=== PATIENT | male | born 1985 | race American Indian/Alaskan Native ===

== ENCOUNTER 2019-07-21 09:42 | Emergency (ER) | payer SELFPAY ==
[~2019-07-21 09:42] MED LIST: AMIODARONE 150 MG/3 ML INJ IV ONE; EPINEPHrine 1:10,000 1 MG/10 ML SYRINGE ONE; NALOXONE 2 MG/2 ML INJ ONE
--- NOTE | 2019-07-21 10:45 | Emergency Department Report ---
ED CPR HPI - General Chief Complaint: Cardiac Arrest/CPR Stated Complaint: CARDIAC ARREST Time Seen by Provider: 07/21/19 10:40 Source: EMS Mode of arrival: Stretcher Limitations: No Limitations - History of Present Illness Initial Comments: This is a 33-year-old man with presumed overdose and cardiac arrest in the field. Medics tell me that they encountered the man with pinpoint pupils. They administered 2 mg of Narcan. They assisted the man's ventilation with an Ambu bag. They established an IV. They gave him 2 additional milligrams of Narcan. He did not respond to Narcan. He suffered a cardiac arrest. At the time of arrival, he had no return of spontaneous circulation for 20 minutes. Medics state that they defibrillated him several times. They gave usual ACLS medications. The patient arrived in the emergency department without signs of life. MD Complaint: stopped breathing (Witnessed by machine feed operator) Place: other (Unknown) Number of Shocks Delivered: 2 (At least 2) Initial Findings in the Field: lethargic ROSC in the Field: No Associated Injuries: No Treatments Prior to Arrival: BMV, defribrillated shocks #, epinephrine mgs # - Related Data Previous Rx's Medication Instructions Recorded Last Taken Type Erythromycin [Erythromycin Ophth 10 applic OP Q4H #1 tube 03/19/13 Unknown Rx Oint] Allergies Allergy/AdvReac Type Severity Reaction Status Date / Time No Known Allergies Allergy Unverified 03/19/13 10:15 ED Review of Systems ROS: Stated complaint: CARDIAC ARREST Other details as noted in HPI Comment: Unobtainable due to pts medical conditions ED Past Medical Hx - Past Medical History Previous Medical History?: Yes Additional medical history: Herion use - Surgical History Additional Surgical History: unknown - Social History Smoking Status: Never Smoker Substance Use Type: Other (Presumed opiate) - Medications Home Medications: Home Medications Medication Instructions Recorded Confirmed Last Taken Type Erythromycin [Erythromycin Ophth 10 applic OP Q4H #1 tube 03/19/13 Unknown Rx Oint] ED Physical Exam - General Limitations: Altered Mental Status General appearance: other (GCS is 3) - Head Head exam: Present: atraumatic - Eye Eye exam: Present: other (Small pupils nonreactive) - ENT ENT exam: Present: normal exam - Neck Neck exam: Present: normal inspection - Respiratory Respiratory exam: Present: normal lung sounds bilaterally (With assist) - Cardiovascular Cardiovascular Exam: Present: other (PEA) - GI/Abdominal GI/Abdominal exam: Present: soft. Absent: distended - Extremities Exam Extremities exam: Present: normal inspection - Back Exam Back exam: Present: other (Not examined) - Neurological Exam Neurological exam: Present: other ED Course - Reevaluation(s) Reevaluation #1: Patient received standard ACLS protocol. He was defibrillated times several. He had no return of spontaneous circulation. He was intubated. Ultimately he was pronounced when further resuscitative efforts were futile. 07/21/19 10:45 - Intubation Time Out Performed: No Laryngoscope: Carmen Size: 4 ET Tube Size: 7.5 Tube Secured Depth (cm): 22 Tube Secured Location: teeth Tube Placement Confirmation: visualized tube passing t, equal breath sounds bilat, no breath sounds over epi Patient Tolerated Procedure: no complications Intubation Complications: none Critical care attestation.: If time is entered above; I have spent that time in minutes in the direct care of this critically ill patient, excluding procedure time. ED Disposition Clinical Impression: Cardiac arrest Overdose Qualifiers: Encounter type: initial encounter Injury intent: undetermined intent Qualified Code(s): T50.904A - Poisoning by unspecified drugs, medicaments and biological substances, undetermined, initial encounter Disposition: DC-20 Is pt being admited?: No Does the pt Need Aspirin: No Condition: Stable Referrals: NIDIA BUSTAMANTE MD [Primary Care Provider] - 3-5 Days Time of Disposition: 10:47
== END 2019-07-21 14:49 ==
LOC: ED 09:53
DX: I46.9 Cardiac arrest, cause unspecified (principal); T65.91XA Toxic effect of unspecified substance, accidental (unintentional), initial encounter; Z79.899 Other long term (current) drug therapy; Y92.89 Other specified places as the place of occurrence of the external cause
CPT/HCPCS: 31500; 92950; 99285; J0171; J0282; J2310